=== PATIENT | female | born 1970 | race Caucasian/White ===

== ENCOUNTER → 2019-10-26 | Outpatient (CLI) | payer BC ==
--- NOTE | 2019-11-09 09:08 | MM ---
Reason for exam: clinical finding. History: Patient has history of other cancer at age 29. Family history of breast cancer in mother at age 60, breast cancer in paternal grandmother at age 61, breast cancer in paternal aunt at age 48, breast cancer in aunt at age 50, and breast cancer in paternal aunt at age 60. Physical Findings: Nurse did not find any significant physical abnormalities on exam. [facility] Diagnostic Mammo w CAD SARA Bilateral CC, MLO, and XCCL view(s) were taken. The breast tissue is heterogeneously dense. This may lower the sensitivity of mammography. There is a stable central outer left breast mass at middle depth worked up in 2015. Right upper outer quadrant posterior depth focal asymmetry has become more pronounced. These results were verbally communicated with the patient and result sheet given to the patient on 10/26/19. ASSESSMENT: Incomplete: need additional imaging evaluation, BI-RAD 0 RECOMMENDATION: Ultrasound of the right breast. (upper outer quadrant)
== END | disposition home or self-care (01) ==
LOC: RADMAMWWP 10:35
PROVIDERS: ATTEND Family Medicine
DX: N63.10 Unspecified lump in the right breast, unspecified quadrant (principal); N63.20 Unspecified lump in the left breast, unspecified quadrant; N64.53 Retraction of nipple
CPT/HCPCS: 77066

== ENCOUNTER → 2019-11-02 | Outpatient (CLI) | payer BC ==
--- NOTE | 2019-11-09 09:11 | USB ---
Reason for exam: additional evaluation requested from abnormal screening. History: Patient has history of other cancer at age 29. Family history of breast cancer in mother at age 60, breast cancer in paternal grandmother at age 61, breast cancer in paternal aunt at age 48, breast cancer in aunt at age 50, and breast cancer in paternal aunt at age 60. US Breast Limited RT Right limited breast ultrasound including focal area of concern, retroareolar and axilla demonstrates a 1.0 x 0.5 x 0.9cm oval, cystic cluster at 10 o'clock, a 1.0 x 0.4 x 0.8cm cystic cluster at 10 o'clock and a 1.4 x 0.7 x 0.8cm cystic cluster at 11 o'clock. Thin septated cysts. These results were verbally communicated with the patient and result sheet given to the patient on 11/02/19. ASSESSMENT: Probably benign, BI-RAD 3 RECOMMENDATION: Follow-up diagnostic mammogram and ultrasound of the right breast in 6 months.
== END | disposition home or self-care (01) ==
LOC: RADUSWWP 09:35
PROVIDERS: ATTEND Family Medicine
DX: R92.8 Other abnormal and inconclusive findings on diagnostic imaging of breast (principal)